=== PATIENT | female | born 1985 | race Caucasian/White ===

== ENCOUNTER 2016-09-30 17:07 | Emergency (ER) | payer MEDICAID ==
[~2016-09-30] VITALS: Ht 162.6 cm; Wt 64.0 kg
[~2016-09-30 17:07] MED LIST: ACET325T38 PO; CEPH500T6 PO; PERM60CR TP; PREN1TAB17 PO; [UNRECOGNIZED DRUG - OTHER]
[2016-09-30 17:10] VITALS: Ht 162.6 cm; Wt 64.0 kg
--- NOTE | 2016-09-30 18:29 | RADRPT ---
PROCEDURE: OBSTETRICAL ULTRASOUND WITH ENDOVAGINAL IMAGES CLINICAL INDICATION: pain TECHNIQUE: Multiple sonographic images of the pelvis were obtained utilizing a transabdominal and endovaginal technique. The images were reviewed on a PACS workstation. COMPARISON: None. LMP: 08/27/2016 FINDINGS: The uterus measures 8.0 x 4.2 x 5.4 cm. There is a single intrauterine with mean sac diameter of 1.39 cm, yolk sac, and crown-rump length of 0.83 cm which is consistent with a gestational age of 6 weeks, 3 days . The estimated date of delivery by ultrasound is 05/23/2017 . The estimated gestational age by LMP is 4 weeks, 6 days . The estimated date of delivery by LMP is 06/03/2017 . No heart rate is detected. The right ovary measures 2.6 x 1.5 x 1.9 cm. The left ovary measures 3.4 x 2.0 x 2.7 cm. There is no rmal vascular flow in both ovaries. There is a 2.4 cm thick-walled cystic lesion with prominent peripheral vascular flow in the left ova ry which is likely a hemorrhagic or corpus luteal cyst. There is trace pelvic free fluid. IMPRESSION: A single intrauterine gestation is identified with crown-rump length of 0.83 cm which would be consi stent with a gestational age of 6 weeks, 3 days. No heart rate is detected which is diagnosti c of early demise when the crown-rump length is greater than 0.7 cm. Continued sonographic fol low-up is recommended. 2.4 cm complex cystic lesion in the left ovary is likely a hemorrhagic or corpus luteal cyst. These findings were discussed with Dr. Flor over the phone on 09/30/2016 at 18:26 hours . RPTAT: EE Physician Molly Date Time Electronically viewed and signed by Physician Molly on 09/30/2016 18:28 /
--- NOTE | 2016-09-30 18:47 | ERD ---
ER Documentation Chief Complaint Date/Time DATE: 09/30/16 TIME: 18:46 Chief Complaint SENT BY PMD FOR EVAL , 8 WEEKS 5 DAYS PREG HPI This 4-year-old female presents upon referral by her OB Dr.payman Davis for no heart tones detected in clinic today. She is approximately 8 weeks by dates. She denies vaginal bleeding. She is some mild suprapubic cramping. She was told by that she might have UTI and was treated today with a prescription of antibiotics. She has no fevers or vomiting. She is a G2 para 1 ROS All systems reviewed and are negative except as per history of present illness. Medications Home Meds Reported Medications Vit-Iron Fumarate-FA ( Tablet) 1 Each Tablet, 1 EACH PO DAILY 04/12/13 [Metforman] No Conflict Check, 500 BID 04/12/13 Permethrin (Elimite) 60 Gm Cream.gm., 60 GM TP 10/03/12 Acetaminophen (Q-Pap) 325 Mg Tablet, 325 MG PO 10/03/12 Cephalexin Monohydrate (Cephalexin) 500 Mg Tablet, 500 MG PO 10/03/12 Allergies Allergies: Coded Allergies: No Known Allergy (Unverified , 11/02/12) PMhx/Soc History of Surgery: No Anesthesia Reaction: No Hx Neurological Disorder: No Hx Respiratory Disorders: No Hx Cardiac Disorders: No Hx Psychiatric Problems: No Hx Miscellaneous Medical Probl: No Hx Alcohol Use: No Hx Substance Use: No Hx Tobacco Use: No Physical Exam Vitals Vital Signs Date Time Temp Pulse Resp B/P Pulse Ox O2 Delivery O2 Flow Rate FiO2 09/30/16 17:10 98.1 68 18 109/56 98 Physical Exam Const: [] Alert, [id number] per Head: Atraumatic Eyes: Normal Conjunctiva ENT: Normal External Ears, Nose and Mouth. Neck: Full range of motion..~ No meningismus. Resp: Clear to auscultation bilaterally Cardio: Regular rate and rhythm, no murmurs Abd: Soft, non tender, non distended. Normal bowel sounds Skin: No petechiae or rashes Back: No midline or flank tenderness Ext: No cyanosis, or edema Neur: Awake and alert Psych: Normal Mood and Affect Procedures/MDM Pelvic ultrasound shows a approximate 6 week 3 day positive crown- rump length and yolk sac with no appreciable heart tones. Findings are suspicious for demise. Patient is no apparent distress of the ED course. Patient appears some symptoms of likely missed . She will be given copies of results with instructions to follow-up with Dr. Davis this week. She should return for bleeding, fevers, vomiting, new worsening symptoms or with primary care doctor and OB as directed. Signs or symptoms not consistent with appendicitis, acute abdomen, additional causes of abdominal pain Departure Diagnosis: Primary Impression: Missed Additional Impression: Encounter for laboratory test Condition: Stable Patient Instructions: Missed Miscarriage Referrals: DEVIKA DAVIS MD Additional Instructions: cheque otro vez con augustine doctor primario esta semana. ultrsonido dice el mismo que ultasonido en la clinica. Cheque otro vez con augustine doctor primario en el proximo wells or regresa para mas o nueva simptomas. MARY STILES MD Sep 30, 2016 18:47
[2016-09-30 19:26] VITALS: BP 111/56; PULSE 61; RESP 16; TEMP 98.4
== END 2016-09-30 19:27 | disposition home or self-care (01) ==
LOC: FTE 17:07
DX: O02.1 Missed abortion (principal); R10.30 Lower abdominal pain, unspecified; Z00.00 Encounter for general adult medical examination without abnormal findings
CPT/HCPCS: 76801; 76817